=== PATIENT | female | born 1955 | race Two or more races ===

== ENCOUNTER → 2016-11-20 | Outpatient (CLI) | payer OTHER ==
--- NOTE | 2016-11-21 03:49 | HKNOTE ---
DATE OF SERVICE: 11/20/2016 MAIN COMPLAINT: Left knee pain. HISTORY OF PRESENT ILLNESS: This is a 61-year-old female complaining of left knee pain for the last several months. She denies any history of trauma. The pain is on the inside of the left knee. She denies any locking or catching. She has occasional instability of the left knee. The pain is sharp. It radiates to her ankle. She denies any groin or back pain. She has no other complaints. PHYSICAL EXAMINATION: GAIT: Nonantalgic gait. No use of assistive devices. LEFT KNEE: Neutral alignment. Tender over the medial joint line. Positive Tia's on the medial joint line. Nontender over the lateral joint line. Stable to varus, valgus stress. Negative Tu. Negative anterior drawer. Negative posterior drawer. 5/5 strength of quadriceps, tibialis anterior, gastroc soleus. Palpable pulses. IMAGING: X-ray of left hip: Two views of the left hip did not demonstrate any fractures, dislocations, or degenerative changes. IMPRESSION: A 61-year-old female with left knee pain. PLAN: We will request authorization for MRI of the left knee. She can take ibuprofen as needed. She will follow up in 2 weeks to go over the results. Dictated By: Wally Lloyd MD /guillermo/raven /Document#: [id number]
== END | disposition home or self-care (01) ==
LOC: HKI 16:18
PROVIDERS: ATTEND Orthopaedic Surgery Adult Reconstructive Orthopaedic Surgery
DX: M25.562 Pain in left knee (principal)
CPT/HCPCS: G0463

== ENCOUNTER → 2017-01-28 | Outpatient (CLI) | payer OTHER ==
--- NOTE | 2017-01-28 15:25 | RADRPT ---
PROCEDURE: XR Left hip and pelvis. CLINICAL INDICATION: Left hip pain and pelvic pain. TECHNIQUE: 3 views. Frontal pelvis. Frontal and lateral left hip. COMPARISON: None. FINDINGS: There is no fracture or dislocation. The soft tissues are normal. Articular surfaces are intact. There is no lytic or blastic lesion. There is no radiopaque foreign body. IMPRESSION: 1. Unremarkable images of the left hip. 2. Unremarkable frontal view of the pelvis. RPTAT: QQ .David Overton MD, Date Time Electronically viewed and signed by .David Overton MD, on 01/28/2017 15:25 .R/
--- NOTE | 2017-01-28 15:53 | HKNOTE ---
DATE OF SERVICE: 01/28/2017 CHIEF COMPLAINT: Left knee pain. HISTORY OF PRESENT ILLNESS: Ms. Balderas returns today for complaint of left knee pain. She denie s any locking, catching or instability. She has difficulty running on a treadmill at times. She do es not use any assistive devices. She denies any history of trauma. She does not take any pain med ications. She has no other complaints. GAIT: Nonantalgic gait reciprocal gait pattern. PHYSICAL EXAMINATION: EXTREMITIES: Left knee exam, 0-130 degree range of motion, stable to varus valgus stress. Negative Tu, negative anterior drawer, negative posterior drawer, negative Tia's. Left knee MRI. No tear is seen in the menisci or cruciate ligaments. The collateral ligaments are intact. There is minimal degenerative changes of the lateral compartment. X-rays of left hip, 3 views of the left hip demonstrate minimal or mild degenerative changes. There are no fractures there are no dislocations. IMPRESSION: A 61-year-old female with left knee pain. PLAN: We will request authorization for physical therapy. She is not requiring pain medications. She will follow up with me as needed. Dictated By: AMAYA HOUSER/KWABENA Conf#: [id number] DID#: [id number]
== END | disposition home or self-care (01) ==
LOC: HKI 09:09
PROVIDERS: ATTEND Orthopaedic Surgery Adult Reconstructive Orthopaedic Surgery
DX: M25.562 Pain in left knee (principal)
CPT/HCPCS: 73502; Z7500; G0463